=== PATIENT | female | born 1970 | race Caucasian/White ===

== ENCOUNTER 2018-12-02 00:28 | Emergency (ER) | payer BC ==
[2018-12-02] MEDS ORDERED: Ketorolac 60 MG/2 ML SDV IM STA (00:42)
[2018-12-02] MEDS ORDERED: diphenhydrAMINE 50 MG/ML SDV IM STA (00:42)
[2018-12-02] MEDS ORDERED: Ondansetron 8 MG Tab.DIS PO STA (00:42)
--- NOTE | 2018-12-02 00:46 | EDM.PDOC ---
ED HPI GENERAL MEDICAL PROBLEM - General Chief Complaint: Headache Stated Complaint: MIGRAINE Time Seen by Provider: 12/02/18 00:28 Source of Information: Reports: Patient, Family History Limitations: Reports: Other (headache) - History of Present Illness INITIAL COMMENTS - FREE TEXT/NARRATIVE: 48 y.o.w.f with a H/O Mirgaine H/A came to the ed with her due to sever bitemporal headache. Not the worst headache ever but one of the worst, her typical Magrain. No Trauma. Pt has nausea and photophobia. Pt took Imitrex PO without improvement of the headache. Pt denies . 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 No SOB/ CP, Add pain or any other acute medical issues. 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: Reports: Other (see below) (imitrex po) headache Pain Score (Numeric/FACES): 10 - Related Data Allergies Allergy/AdvReac Type Severity Reaction Status Date / Time benzoyl peroxide Allergy Difficulty Verified 12/02/18 00:45 Breathing Penicillins Allergy Hives Verified 12/02/18 00:45 Sulfa (Sulfonamide Allergy Hives Verified 12/02/18 00:45 Antibiotics) Home Meds: Home Meds Aspirin [Halfprin] 81 mg PO DAILY 12/02/18 [History] Diclofenac Sodium [Voltaren] 50 mg PO DAILY 12/02/18 [History] Ergocalciferol (Vitamin D2) [Vitamin D2] 2,000 unit PO DAILY 12/02/18 [History] Gabapentin [Neurontin] 100 mg PO BID 12/02/18 [History] Metoprolol Succinate [Toprol XL] 25 mg PO DAILY 12/02/18 [History] Omeprazole Magnesium [Prilosec Otc] 20 mg PO DAILY 12/02/18 [History] QUEtiapine [SEROquel] 300 mg PO BEDTIME 12/02/18 [History] atorvaSTATin [Lipitor] 20 mg PO DAILY 12/02/18 [History] lamoTRIgine [Lamictal] 200 mg PO BID 12/02/18 [History] metFORMIN [Glucophage] 1,000 mg PO BIDMEALS 12/02/18 [History] ED ROS GENERAL - Review of Systems Review Of Systems: See Below Constitutional: Reports: No Symptoms HEENT: Reports: No Symptoms Respiratory: Reports: No Symptoms Cardiovascular: Reports: No Symptoms Endocrine: Reports: No Symptoms GI/Abdominal: Reports: No Symptoms : Reports: No Symptoms Musculoskeletal: Reports: No Symptoms Skin: Reports: No Symptoms Neurological: Reports: Headache Psychiatric: Reports: No Symptoms Hematologic/Lymphatic: Reports: No Symptoms Immunologic: Reports: No Symptoms - Physical Exam Exam: See Below Exam Limited By: No Limitations General Appearance: Alert, WD/WN, Moderate Distress Eye Exam: Bilateral Eye: Normal Inspection Ears: Normal External Exam Nose: Normal Inspection Throat/Mouth: Normal Inspection Head Exam: Atraumatic, Normocephalic, Other (migraine H/A with photophobia) Neck: Normal Inspection Respiratory/Chest: No Respiratory Distress, Lungs Clear Cardiovascular: Normal Peripheral Pulses GI/Abdominal: Normal Bowel Sounds, Soft, Non-Tender, No Organomegaly, No Abnormal Bruit, No Mass, Pelvis Stable (Female) Exam: Deferred Rectal (Female) Exam: Deferred Neuro Exam (Abbreviated): Alert, Oriented, CN II-XII Intact, Normal Cognition, Normal Gait DTR: 1+: Bicep (L) Back Exam: Normal Inspection Extremities: Normal Inspection, Normal Range of Motion, Non-Tender, No Pedal Edema, Normal Capillary Refill Psychiatric: Normal Affect, Normal Mood Skin Exam: Warm, Dry, Intact, Normal Color, No Rash Course - Vital Signs Text/Narrative:: 48 y.o.w.f with a H/O Mirgaine H/A came to the ed with her due to sever bitemporal headache. Not the worst headache ever but one of the worst, her typical [place]. No Trauma. Pt has nausea and photophobia. Pt took Imitrex PO without improvement of the headache. Pt denies . 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 No SOB/ CP, Add pain or any other acute medical issues. BP 125/55 RR 17 Pulse ox 100% on RA, Pulse 61 temp 36.8 PE: WNWD W F with derrek temp migraine headache with photophobia Imaging: Not indicated, Labs: Not indicated Impression: Classic migraine H/A Tx: Toradol 60 im, Benadryl 50 mg im and Zofran 8 mg SL Reexam: 60% improved, requests to be discharged Plan: D/C with instructions Last Recorded V/S: Last Vital Signs Temp 36.3 C 12/02/18 00:45 Pulse 68 12/02/18 00:45 Resp 17 12/02/18 00:45 BP 126/55 L 12/02/18 00:45 Pulse Ox 100 12/02/18 00:45 - Orders/Labs/Meds Meds: Medications Discontinued Medications Generic Name Dose Route Start Last Admin Trade Name Aliya PRN Reason Stop Dose Admin Diphenhydramine HCl 50 mg 12/02/18 00:42 12/02/18 00:49 Benadryl IM 12/02/18 00:43 50 mg ONETIME STA Administration Ketorolac Tromethamine 60 mg 12/02/18 00:42 12/02/18 00:48 Toradol IM 12/02/18 00:43 60 mg ONETIME STA Administration Ondansetron HCl 8 mg 12/02/18 00:42 12/02/18 00:49 Zofran Odt PO 12/02/18 00:43 8 mg ONETIME STA Administration Departure - Departure Time of Disposition: 01:48 Disposition: Home, Self-Care 01 Condition: Good Clinical Impression: Migraine - Discharge Information Instructions: Migraine Headache Referrals: PCP,Not In Area [Primary Care Provider] - Forms: ED Department Discharge Additional Instructions: Please take your current meds, please f/u, come back if your symptoms get worse acutely
== END 2018-12-02 01:55 | disposition home or self-care (01) ==
LOC: FB.ED 00:28
DX: G43.109 Migraine with aura, not intractable, without status migrainosus (principal); Z88.8 Allergy status to other drugs, medicaments and biological substances; Z79.82 Long term (current) use of aspirin; Z79.899 Other long term (current) drug therapy; Z79.84 Long term (current) use of oral hypoglycemic drugs
CPT/HCPCS: 96372; 99283; A9270; J1200; J1885